=== PATIENT | female | born 1990 | race Two or more races ===

== ENCOUNTER 2025-05-12 22:35 | Emergency (ER) | payer OTHER, SELFPAY ==
--- OUTSIDE RECORDS SUMMARY | 2024-04-17 11:30 | XMS_ITS ---
Author Organization [facility] Address [address] [place], [place] [id number] Care Team Providers Care Creative Art Director Name Role Phone Chayito Barker Unavailable [phone] Chayito Lehman Unavailable [phone] REASON FOR VISIT Wellness Medications Medication SIG (Take, Route, Frequency, Duration) Notes Start Date End Date Status metFORMIN HCl 1000 MG as directed Orally Once a day Active Trulicity 1.5 MG/0.5ML Subcutaneous for 28 Days Not-Taking Social History Sex Assigned At : Social History Observation Description Sex Assigned At Female Encounters Encounter Location Date Provider Diagnosis Main [address] [place], [place] [id number] 04/17/2024 Chayito Lehman Plan Of Treatment No Information Progress Notes * Yany JOSEDOB: 0 (34 yo F)Acc No.[id number]:04/17/2024 Medical Note Patient: Yany RHOADES Provider: Oly Roman, MSN, FUEL CELL BINDER, CERTIFIED CORPORATE TRAVEL EXECUTIVE-C :1990 A ge:33 Y S ex:Female Date:04/17/2024 Address:[address] [place] [address] [id number] Subjective: * Chief Complaints: * 1 . Wellness. * Medical History: * Medications: T aking metFORMIN HCl 1000 MG Tablet as directed Orally Once a day , Not- Taking/PRN Trulicity 1.5 MG/0.5ML Solution Pen-injector Subcutaneous Objective: * Vitals: Assessment: Plan: * Treatment: * Billing Information: * Visit Code: * Procedure Codes: * Electronic signature of DARIN Alfaro on 05/12/2025 at 10:42 PM EDT Sign off status: Pending * Provider: PETR Suarez, FUEL CELL BINDERDARIN Date: 0 04/17/2024 Generated for Printing/Faxing/eTransmitting on: 0 05/12/2025 10:42 PM EDT
--- OUTSIDE RECORDS SUMMARY | 2025-05-07 04:35 | XMS_ITS | Encounter Summary ---
Author Organization [facility] Address [id number] [address] [place] [address] Care Team Providers Care Glassware Defect Repairer Name Role Phone ElisabethSara ORJAS-CONVEX GRINDER OPERATOR Primary Care Provide r Reason for Visit * Reason Comments Back Pain Pt reports to ER [facility] with complaints of chronic pain. Pt reports her back pain has worsened recently due to starting a new job. Encounter Details Date Type Department Care Team ([facility] Contact Info) Description 05/07/2025 4:35 AM EDT - 05/07/2025 5:31 AM EDT Emergency [facility] - Emergency [address] [place] [address] Delroy Hobbs MD [address] [place], [place] [id number] Lumbar back pain (Primary Dx) Discharge Disposition: Home Social History Tobacco Use Types Packs/Day Years Used Date Smoking Tobacco: Former Cigarettes Q uit: 08/2020 Smokeless Tobacco: Never Alcohol Use Standard Drinks/Week Comments Not Currently 0 (1 standard drink = 0.6 oz pur e alcohol) Social Connection and Isolat ion Panel [NHANES] Answer Date Recorded In a typical week, how many times do you talk on the phone with family, friends, or neighbors? More than three times a week 06/17/2021 How often do you get togethe r with friends or relatives? More than three times a week 06/17/2021 How often do you attend chur or hinduism services? Never 06/17/2021 Do you belong to any clubs o r organizations such as buddhism groups, unions, fraternal or athletic groups, or school groups? No 06/17/2021 How often do you attend meet ings of the clubs or organizations you belong to? Never 06/17/2021 Are you , , di vorced, , never , or living with a partner? Never 06/17/2021 AUDIT-C Answer Date Recorded Q1: How often do you have a drink containing alc ohol? Monthly or less 06/17/2021 Q2: How many drinks containi ng alcohol do you have on a typical day when you are drinking? 1 or 2 06/17/2021 Q3: How often do you have si x or more drinks on one occasion? Never 06/17/2021 Overall Financial Resource Strain (CARDIA) Answe r Date Recorded How hard is it for you to pa y for the very basics like food, housing, medical care, and heating? Not very hard 06/17/2021 PHQ-2 Answer Date Recorded Total Score 0 03/03/2022 [facility] - Occupational Stress Questionnaire Answer Date Recorded Do you feel stress - tense, restless, nervous, or anxious, or unable to sleep at night because your mind is troubled all the time - these days? Only a little 06/17/2021 Exercise Vital Sign Answer Date Recorde d On average, how many days pe r week do you engage in moderate to strenuous exercise (like a brisk walk)? 0 days 06/17/2021 On average, how many minutes do you engage in exercise at this level? 20 min 06/17/2021 PRAPARE - Transportation Answer Date Re corded In the past 12 months, has l ack of transportation kept you from medical appointments or from getting medications? No 06/05 In the past 12 months, has l ack of transportation kept you from meetings, work, or from getting things needed for daily living? No 06/17/2021 Childcare Answer Date Recorded Do problems getting child ca re make it difficult for you to work or study? Yes 06/17/2021 Employment Answer Date Recorded Do you need help finding a [facility] [employer] career center and/or a training program? No 06/17/2021 Hunger Screening Answer Date Recorded Within the past 12 months we worried whether our food would run out before we got money to buy more. Never True 05/07/2025 Within the past 12 months th e food we bought just didn't last and we didn't have money to get more. Never True 05/07/2025 Purpose - Life Answer Date Recorded I have a purpose and direction in my life. Stron gly Agree 06/17/2021 Education Answer Date Recorded What is the highest level of school you have completed or the highest degree you have received? 12th grade 06/17/2021 Comments No Sex and Gender Information Value Date Recorded Sex Assigned at Female 12/08/2019 12:25 AM EST Legal Sex Female 11:58 AM EDT Gender Identity Female 12/08/2019 12:25 AM EST Sexual Orientation Straight 12/08/2019 12 :25 AM EST documented as of this encounter Last Filed Vital Signs Vital Sign Reading Time Taken Comments Blood Pressure 105/42 05/07/2025 5:30 AM EDT Pulse 86 05/07/2025 5:30 AM EDT Temperature - - Respiratory Rate 18 05/07/2025 4:38 AM EDT Oxygen Saturation 97% 05/07/2025 5:30 AM EDT Inhaled Oxygen Concentration - - Weight 130.2 kg (287 lb) 05/07/2025 4:38 AM EDT Height 154.9 cm (5' 1 ) 05/07/2025 4:38 AM EDT Body Mass Index 54.23 05/07/2025 4:38 AM EDT documented in this encounter Discharge Instructions * Discharge Instructions* Delroy Hobbs MD - 05/07/2025 5:27 AM EDT Up with the PCP and with your pain doctor as we discussed. Home with a ride you should not drive after taking Percocet. Off work today. Thanks for choosing for [facility] and return for any concern documented in this encounter Medications at Time of Discharge alcohol swabs pads, medicatedIndicat ions:Type 2 diabetes mellitus without complication, without long-term current use of insulin ([facility]) Use as directed once dailly before insulin injections 100 each 3 03/18/2025 blood sugar diagnostic (DelaGet VERIO TEST STRIPS) stripIndications :Type 2 diabetes mellitus without complication, without long-term current use of insulin ([facility]) Use As Directed to test blood sugars 1-2 times a day 100 strip 2 04/15/2025 blood-glucose meter (scPharmaceuticalsUCH VERIO REFLECT METER) miscIndications: Type 2 diabetes mellitus without complication, without long-term current use of insulin ([facility]) Use as directed to test blood sugar 1 each 04/15/2025 blood-glucose sensor ([employer] G7 SENSOR) deviceIndication s:Type 2 diabetes mellitus without complication, without long-term current use of insulin ([facility]) Use as directed to monitor blood sugar before and after every meal. Change every 10 days. 9 each 1 04/15/2025 cyclobenzaprine (FLEXERIL) 10 mg tablet Take 1 tablet (10 mg total) by mouth 2 (two) times a day as needed for muscle spasms. 10 tablet 05/07/2025 empagliflozin (JARDIANCE) 25 mg tablet tabletIndication s:Type 2 diabetes mellitus without complication, without long-term current use of insulin ([facility]) Take 1 tablet (25 mg total) by mouth in the morning. 30 tablet 2 04/01/2025 ibuprofen (MOTRIN) 600 mg tabletIndication s:Lumbar back pain Take 1 tablet (600 mg total) by mouth every 6 (six) hours as needed for pain. 20 tablet 05/07/2025 insulin glargine 300 unit/mL (TOUMELISAO SOLOSTAR U-300 INSULIN) 300 unit/mL (1.5 mL) insulin penIndications:T ype 2 diabetes mellitus without complication, without long-term current use of insulin ([facility]) Inject 16 units Once Daily, And increase by 2 units every 2 days until AM BG levels reach 130s. Up to 45 units daily. 4.5 mL 1 03/18/2025 lancets (FrenzooTOUCH DELICA PLUS LANCET) 33 gauge miscIndications: Type 2 diabetes mellitus without complication, without long-term current use of insulin ([facility]) Use As Directed to test blood sugars 1-2 times a day 100 each 2 04/15/2025 metFORMIN XR (GLUCOPHAGE XR) 500 mg 24 hr tabletIndication s:Type 2 diabetes mellitus without complication, without long-term current use of insulin ([facility]) Take 2 tablets (1,000 mg total) by mouth in the morning and 2 tablets (1,000 mg total) before bedtime. 120 tablet 2 04/01/2025 pen needle, diabetic 32 gauge x 5/32 needleIndication s:Type 2 diabetes mellitus without complication, without long-term current use of insulin ([facility]) Use as directed once daily to deliver insulin 100 each 3 03/18/2025 tirzepatide (MOUNJARO) 5 mg/0.5 mL pen injectorIndicati ons:Type 2 diabetes mellitus without complication, without long-term current use of insulin ([facility]) Inject 5 mg under the skin every 7 days. 2 mL 2 04/01/2025 documented as of this encounter ED Notes * Delroy Hobbs MD - 05/07/2025 4:42 AM EDT Images from the original note were not included. [facility] - EMERGENCY Pt Name: Yany Jose Birthdate: 1990 Chief Complaint: Chief Complaint Patient presents with ??? Back Pain Pt reports to [facility] with complaints of chronic pain. Pt reports her back pain has worsened recently due to starting a new job. History of Present Illness: The patient presents about 4:30 a.m. complaining of severe low back pain. The patient was at work where she was active and moving and she said standing and moving in any kind of twisting seems to exacerbate a pain that she has had for many years and her back. The patient says she has had back pain for over 10 years and she has been to a chiropractor along with a chest pain coordinator though she does not believe she has ever seen a spinal surgeon. She has had x-rays in the past and she believes they showed a partial compression fracture she has had no recent x-rays but she has had no recent fall or injury either. The patient also denies any urinary symptoms at all no burning no urgency no incontinence of urine or stool. The patient denies any motor or sensory deficit and as stated denies any type of trauma Past Medical History: Past Medical History: Diagnosis Date ??? Abnormal Pap smear of cervix ??? Bartholin cyst ??? Chronic pain disorder ??? Diabetes mellitus type 2, controlled (CMS-HCC) ??? Low back pain ??? Morbid obesity (CMS-HCC) ??? Sleep apnea uses cpap Past Surgical History: Past Surgical History: Procedure Laterality Date ??? COLPOSCOPY ??? INJECTION BLOCK NERVE MEDIAL BRANCH: bilat L 4/,5 5/1 Bilateral 02/01/2024 Performed by Jaiden Robins MD at [facility] ??? INJECTION BLOCK SACROILIAC JOINT Bilateral 12/07/2023 Performed by Jaiden Robins MD at [facility] Family History: Family History Problem Relation Age of Onset ??? Diabetes Mother ??? Diabetes Father ??? Diabetes Paternal Grandmother ??? Hypertension Brother ??? Breast cancer Neg Hx Social History: Social History Socioeconomic History ??? Marital status: Single ??? Highest education level: 12th grade Tobacco Use ??? Smoking status: Former Current packs/day: 0.00 Types: Cigarettes Quit date: 08/2020 Years since quittin.7 ??? Smokeless tobacco: Never Vaping Use ??? Vaping status: Never Used Substance and Sexual Activity ??? Alcohol use: Not Currently ??? Drug use: Not Currently ??? Sexual activity: Yes Partners: Male control/protection: None Social Drivers of Health Financial Resource Strain: Low Risk (06/17/2021) Overall Financial Resource Strain (CARDIA) ??? Difficulty of Paying Living Expenses: Not very hard Food Insecurity: No Food Insecurity (03/04/2025) Hunger Screening ??? Food Insecurity - Worry: Never True ??? Food Insecurity - Inability: Never True Transportation Needs: No Transportation Needs (06/17/2021) PRAPARE - Transportation ??? Lack of Transportation (Medical): No ??? Lack of Transportation (Non-Medical): No Physical Activity: Inactive (06/17/2021) Exercise Vital Sign ??? Days of Exercise per Week: 0 days ??? Minutes of Exercise per Session: 20 min Stress: No Stress Concern Present (06/17/2021) [facility] - Occupational Stress Questionnaire ??? Feeling of Stress : Only a little Social Connections: Socially Isolated (06/17/2021) Social Connection and Isolation Panel [NHANES] ??? Frequency of Communication with Friends and Family: More than three times a week ??? Frequency of Social Gatherings with Friends and Family: More than three times a week ??? Attends Jewish Services: Never ??? Active Member of Clubs or Organizations: No ??? Attends Club or Organization Meetings: Never ??? Marital Status: Never Interpersonal Safety: Not At Risk (06/17/2021) Humiliation, Afraid, Rape, and Kick questionnaire ??? Fear of Current or Ex-Partner: No ??? Emotionally Abused: No ??? Physically Abused: No ??? Sexually Abused: No Review of Systems: Review of Systems Physical Exam: ED Triage Vitals [05/07/25 0438] Temp Heart Rate Resp BP SpO2 -- 83 18 -- 99 % Temp src Heart Rate Source Patient Position BP Location FiO2 (%) -- Pulse Ox Semi-fowlers Left arm -- Vitals: 05/07/258 Pulse: 83 Resp: 18 SpO2: 99% Height: 154.9 cm (5' 1 ) Weight: 130.2 kg (287 lb) Physical Exam Constitutional: General: She is not in acute distress. Appearance: She is obese. She is not ill-appearing. Pulmonary: Effort: Pulmonary effort is normal. Abdominal: Palpations: Abdomen is soft. Musculoskeletal: General: Tenderness present. No deformity or signs of injury. Right lower leg: No edema. Left lower leg: No edema. Comments: Some tenderness diffusely in her back but mostly with movement Skin: General: Skin is warm. Neurological: General: No focal deficit present. Mental Status: She is oriented to person, place, and time. Mental status is at baseline. Cranial Nerves: No cranial nerve deficit. Sensory: No sensory deficit. Motor: No weakness. Coordination: Coordination normal. Psychiatric: Mood and Affect: Mood normal. Procedure: Procedures Re-evaluation: Re-Evaluation Medical Decision Making Consideration is made for imaging for fracture or cauda equina or other pathologies, however the patient has had imaging in the past, her pain has been present for very long time and she has had no trauma whatsoever. She also has no new incontinence and no motor or sensory deficit so I felt x-rays were probably not necessary I discussed this with the patient and she agreed. We also considered renal colic but her pain is not typical of renal colic and she has had no urinary symptoms, I so we focus on treating her symptoms patient will be medicated re-evaluated Amount and/or Complexity of Data Reviewed External Data Reviewed: radiology. Details: I Reviewed her MRI of lumbar spine from 09/27: Probable minimal disc bulge at T12-L1. * No evidence of donald disc herniation, spinal stenosis or narrowing of the neural foramina in the lower thoracic and lumbar region. * No other acute pathology is identified. Radiology: Details: Considered and discussed x-rays but I felt it was not necessary given she has had no trauma and after reviewing some of her recent imaging including an MRI and the patient was agreeable to this Discussion of management or test interpretation with external provider(s): Treated the patient with15 of Toradol and 2 Percocet and will re-evaluate Risk OTC drugs. Prescription drug management. Drug therapy requiring intensive monitoring for toxicity. Diagnosis or treatment significantly limited by social determinants of health. ED Course: Clinical Impressions as of 05/07/25 0526 Lumbar back pain . ED Disposition None . Please note that portions of this note were completed with a voice recognition program. Efforts were made to edit the dictations but occasionally words are mis-transcribed. Delroy Hobbs MD 05/07/25 0448 documented in this encounter Plan of Treatment Upcoming Encounters Date Type Department Care Team (Late st Contact Info) Description 05/20/2025 10:00 AM EDT Office Visit [facility] Physicians Family Medicine [address] [place] [address] [place] [address] Sujata Alvarez APRN-CONVEX GRINDER OPERATOR [address] [place] [address], [place] [address] 06/19/2025 1:00 PM EDT Clinical Support [facility] - Pharmacy Medication Management [address] [place] [address] documented as of this encounter Goals Goal Patient Goal Type Associated Problems Recent Progress Patient-Stated? Author Exercise 150 minutes per week (moderate activity) Exercise No Mirna Pitts, RN Note: Evaluation of progress towards goal: New goal Fasting Blood Glucose 70-130 Result Component No Mirna Pitts RN Note: New goal documented as of this encounter Visit Diagnoses Diagnosis Lumbar back pain- Primary Lumbago documented in this encounter Administered Medications Inactive Administered Medications - up to 3 most recent administrations Medication Order MAR Action Action Date Dose Rate Site ketorolac (TORADOL) injection 15 mg 15 mg, intramuscular, Once, On Julia 05/07/25 at 0445, For 1 dose, Look-alike/sound-alike medication - verify indication for use. Duration of therapy is not to exceed 5 days. Maximum recommended dose + 120mg/24 hours. Given 05/07/2025 4:46 AM EDT 15 mg Right Quadriceps oxyCODONE-acetaminophen (PERCOCET) 5-325 mg per tablet 2 tablet 2 tablet, oral, Once, On Julia 05/07/25 at 0445, For 1 dose, Look-alike/sound-alike medication - verify indication for use. Given 05/07/2025 4:48 AM EDT 2 tablets documented in this encounter Active and Recently Administered Medications Times are shown in EDT. Scheduled Medication Order 05/05/2025 05/06/2025 05/07/2025 ketorolac (TORADOL) injection 15 mg (COMPLETED) 15 mg, intramuscular, Once, On Julia 05/07/25 at 0445, For 1 dose, Look-alike/sound-alike medication - verify indication for use. Duration of therapy is not to exceed 5 days. Maximum recommended dose + 120mg/24 hours. 0446 (Given - Provid er: Keyonna Van, KAREEM) oxyCODONE-acetaminophen (PERCOCET) 5-325 mg per tablet 2 tablet (COMPLETED) 2 tablet, oral, Once, On Julia 05/07/25 at 0445, For 1 dose, Look-alike/sound-alike medication - verify indication for use. 0448 (Given - Provid er: Keyonna Van RN) documented in this encounter Additional Health Concerns Assessment Noted Time PHQ-9 Depression Total Score: 0 03/03/20 22 10:00 AM EDT A Body Mass Index follow-up plan has been documented for the patient 03/13/2023 10:38 AM EDT documented as of this encounter Care Teams Glassware Defect Repairer Relationship Specialty Start Date End Date Sara Barber APRN-CAMI [address] [place] [address] PCP - General Family Medicine 03/04/25 documented as of this encounter
--- OUTSIDE RECORDS SUMMARY | 2025-05-12 22:42 | XMS_ITS | Encounter Summary ---
Author Organization [employer] tem Address [id number] [address] [place] [address] Care Team Providers Care Tutoring Assistant Name Role Phone Sara Barber APRN-BOILER HELPER Primary Care Provide r Encounter Details Date Type Department Care Team (Latest Contact Info) Description 05/07/2025 Travel Social History Tobacco Use Types Packs/Day Years [...] week 06/17/2021 How often do you attend [facility] or nondenominational services? Never 06/17/2021 Do you belong to any clubs o r organizations such as caodaism groups, unions, fraternal or athletic groups, or [...] Answer Date Recorded Total Score 0 03/03/2022 [facility] Answer Date Recorded [...] Recorded Do you need help finding a [facility] career center and/or a training program? No [...] AM EST documented as of this encounter Plan of Treatment Upcoming Encounters Date Type Department Care Team (Late st Contact Info) Description 05/20/2025 10:00 AM EDT Office Visit [facility] Physicians Family Medicine [address] [place] [address] Sujata Alvarez APRN-CNP [address] [place], [place] [address] 06/19/2025 1:00 PM EDT Clinical Support [facility] - Pharmacy Medication Management [address] [place] [address] documented as of this encounter Goals Goal Patient Goal Type Associated Problems Recent Progress Patient-Stated? Author Exercise 150 minutes per week (moderate activity) Exercise No Mirna Pitts, RN Note: Evaluation of progress towards goal: New goal Fasting Blood Glucose 70-130 Result Component No Mirna Pitts, RN Note: New goal documented as of this encounter Visit Diagnoses Not on filedocumented in this encounter Additional Health Concerns Assessment Noted Time PHQ-9 Depression Total Score: 0 03/03/20 22 10:00 AM EDT A Body Mass Index follow-up plan has been documented for the patient 03/13/2023 10:38 AM EDT documented as of this encounter Care Teams Tutoring Assistant Relationship Specialty Start Date End Date Sara Barber APRN-CAMI [address] [place] [address] PCP - General Family Medicine 03/04/25 documented as of this encounter
--- OUTSIDE RECORDS SUMMARY | 2025-05-12 22:42 | XMS_ITS | Encounter Summary ---
Author Organization [facility] tem Address [id number] [address] [place] [address] Care Team Providers Care Fans Clerk Name Role Phone Sara Barber Primary Care Provide r Reason for Referral * Diagnostic Imaging (Routine) - Closed Specialty Diagnoses / Procedures Referred By Contac t Referred To Contact Radiology Diagnoses Splenomegaly Lymphoma, unspecified body region, unspecified lymphoma type (CMS-HCC) Procedures CT abdomen and pelvis with contrast Sara Barber APRN-CNP [address] [place] [address] Phone: tel: fax: [facility] [address] [place] [address] Phone: tel: Referral ID Status Reason Start Date Expiration Date Visits Re quested Visits Authorized [id number] Closed 04/20/2021 04/20/2022 1 1 Encounter Details Date Type Department Care Team (Late st Contact Info) Description 04/20/2021 Orders Only [facility] [address] [place] [address] Sara Barber APRN-CNP [address], [place] [phone] Splenomegaly (Primary Dx); Lymphoma, unspecified body region, unspecified lymphoma type (CMS-HCC) Social History Tobacco Use Types Packs/Day Years Used Date Smoking Tobacco: Former Cigarettes Q uit: 08/2020 Smokeless Tobacco: Never Alcohol Use Standard Drinks/Week Comments Not Currently 0 (1 standard drink = 0.6 oz pur e alcohol) PHQ-2 Answer Date Recorded Total Score 0 03/24/2021 Childcare Answer Date Recorded Childcare Unknown 04/14/2019 Employment Answer Date Recorded Employment Unknown 04/14/2019 Purpose - Life Answer Date Recorded Purpose and direction in life Unknown Comments No Sex and Gender Information Value Date Recorded Sex Assigned at Female 12/08/2019 12:25 AM EST Legal Sex Female 11:58 AM EDT Gender Identity Female 12/08/2019 12:25 AM EST Sexual Orientation Straight 12/08/2019 12 :25 AM EST COVID-19 Exposure Response Date Recorded In the last month, have you been in contact with someone who was confirmed or suspected to have Coronavirus / COVID-19? No / Unsure 04/21/2021 1:17 PM EDT documented as of this encounter Plan of Treatment Upcoming Encounters Date Type Department Care Team (Late st Contact Info) Description 05/20/2025 10:00 AM EDT Office Visit [facility] [address] [place] [address] [place] [address] Sujata Alvarez APRN-WINCH TRUCK OPERATOR [address] [place], [place] [address] 06/19/2025 1:00 PM EDT Clinical Support [facility] [place] - Pharmacy Medication Management [address] [place] [address] documented as of this encounter Results * CT abdomen and pelvis with contrast (05/04/2021 4:32 PM EDT) Anatomical Region Laterality Modality Body, Abdomen, Body Covera N/A Compu adriano Tomography 05/05/2021 11:3 0 AM EDT Addenda Addendum by Alba London DO on 05/05/2021 11:39 AM EDT ADDENDUMPlease also add in the impression: Probable cholelithiasis Finalized by Alba London DO on 05/05/2021 11:39 AM Narrative 05/05/2021 11:[address] ABDOMEN AND PELVIS WITH CONTRAST COMPARISON: CT thorax dated 04/15/2021 HISTORY: Metastatic disease evaluation. TECHNIQUE: 150 mL of Omnipaque 300 nonionic contrast injected intravenously without reported complication. Axial images obtained from the lung bases to the pubic symphysis with sagittal and coronal 2D reformatted images. Oral contrast administered: Yes. Automatic exposure control (AEC) was utilized. CT ABDOMEN FINDINGS: There is an approximately 2.0 x 1.7 x 1.7 cm mass in the right which is stable. Smaller mass in the right cardio phrenic angle is also seen and is unchanged. Probable hepatic steatosis. There is splenomegaly which is stable. The pancreas is unremarkable. There is probable cholelithiasis. There are no adrenal masses. The kidneys showed no evidence of hydronephrosis or mass. The aorta and iliac vessels are unremarkable. There is no bowel obstruction. No free air or free fluid is seen. No adenopathy is identified. Is a small umbilical hernia containing fat CT PELVIS FINDINGS: There is no free fluid. There are no adnexal masses. The urinary bladder is intact. The perirectal fat planes are preserved. IMPRESSION: No evidence of acute process within the abdomen or pelvis. Splenomegaly unchanged Right lower lobe masses which appear stable All CT scans at this facility use dose modulation, iterative reconstruction, and/or weight based dosing when appropriate to reduce radiation dose to as low as reasonably achievable. Finalized by Alba London DO on 05/05/2021 11:36 AM Procedure Note Alba London DO - 05/05/2021 CT ABDOMEN AND PELVIS WITH CONTRAST COMPARISON: CT thorax dated 04/15/2021 HISTORY: Metastatic disease evaluation. TECHNIQUE: 150 mL of Omnipaque 300 nonionic contrast injectedintravenously without reported complication. Axial images obtained fromthe lung bases to the pubic symphysis with sagittal and coronal 2Dreformatted images. Oral contrast administered: Yes. Automatic exposurecontrol (AEC) was utilized. CT ABDOMEN FINDINGS: There is an approximately 2.0 x 1.7 x 1.7 cm mass in the right which isstable. Smaller mass in the right cardio phrenic angle is also seen andis unchanged. Probable hepatic steatosis. There is splenomegaly which is stable. The pancreas is unremarkable. There is probable cholelithiasis. There are no adrenal masses. The kidneys showed no evidence ofhydronephrosis or mass. The aorta and iliac vessels are unremarkable. There is no bowel obstruction. No free air or free fluid is seen. No adenopathy is identified. Is a small umbilical hernia containing fat CT PELVIS FINDINGS: There is no free fluid. There are no adnexal masses. The urinary bladderis intact. The perirectal fat planes are preserved. IMPRESSION: No evidence of acute process within the abdomen or pelvis. Splenomegaly unchanged Right lower lobe masses which appear stable All CT scans at this facility use dose modulation, iterativereconstruction, and/or weight based dosing when appropriate to reduceradiation dose to as low as reasonably achievable. Finalized by Alba London DO on 05/05/2021 11:36 AM Sara Barbre APRN-CAMI IMG CT ORDERABLES Adrian adriano Result - Final documented in this encounter Visit Diagnoses Diagnosis Splenomegaly- Primary Lymphoma, unspecified body region, unspecified lymphoma type (CMS-HCC) Splenomegaly Lymphoma, unspecified body region, unspecified lymphoma type (CMS-HCC) documented in this encounter Additional Health Concerns Infection Onset Date Last Indicated Resolved Time COVID-19 Positive 10/02/2023 10/02/2023 10/23/2023 11:12 PM EST Respiratory Rule-Out 01/19/2025 01/19/2025 025 4:06 AM EDT COVID-19 Positive 01/19/2025 01/19/2025 02/09/2025 11:12 PM EDT Assessment Noted Time PHQ-9 Depression Total Score: 0 03/24/20 21 10:00 AM EDT A Body Mass Index follow-up plan has been documented for the patient 03/24/2021 11:27 AM EDT documented as of this encounter Care Teams Fans Clerk Relationship Specialty Start Date End Date Sara Barber APRN-CNP [address] [place] [address] PCP - General Family Medicine 03/04/25 documented as of this encounter
--- OUTSIDE RECORDS SUMMARY | 2025-05-12 22:42 | XMS_ITS | Encounter Summary ---
Author Organization [employer] [facility] tem Address [id number] [address] [place] [address] Care Team Providers Care Power Grader Operator Name Role Phone Sara Barber APRN-CAMI Primary Care Provide r Encounter Details Date Type Department Care Team ([facility] Contact Info) Description 04/06/2021 Telephone [facility] Family Medicine [address] [place] [address] Sara Barber APRN-CNP [address] [place], [place] [phone] Social History Tobacco Use Types Packs/Day Years [...] have Coronavirus / COVID-19? No / Unsure 03/24/2021 10:38 AM EDT documented as of this encounter Miscellaneous Notes * Telephone Encounter - Janis Fung - 04/06/2021 2:57 PM EDT FYI: Patient's insurance hasn't approved her CT so they are calling the patient to move the appointment out to try to get it approved through her insurance. * Telephone Encounter - BRIANDA Chandler - 04/06/2021 2:57 PM EDT Thank you documented in this encounter Plan of Treatment Upcoming Encounters Date Type Department Care Team (Late st Contact Info) Description 05/20/2025 10:00 AM EDT Office Visit [facility] [address] [facility] [place] [address] Sujata Alvarez APRN-CNP [address] [place], [place] [address] 06/19/2025 1:00 PM EDT Clinical Support [facility] - Pharmacy Medication Management [address] [place] [address] documented as of this encounter Visit Diagnoses Not on filedocumented in this encounter Additional Health Concerns Infection [...] documented as of this encounter Care Teams Power Grader Operator Relationship Specialty Start Date End Date Sara Barber APRN-CAMI [address] [phone] PCP - General Family Medicine 03/04/25 documented as of this encounter
--- OUTSIDE RECORDS SUMMARY | 2025-05-12 22:42 | XMS_ITS | Encounter Summary ---
Author Organization [facility] [facility] tem Address [id number] [address] [place] [address] Care Team Providers Care Rodent Control Worker Name Role Phone Sara Barber APRN-CAMI Primary Care Provide r Reason for Visit * Reason Comments Med Refill Encounter Details Date Type Department Care Team ([facility] st Contact Info) Description 04/15/2025 Refill [facility] - Pharmacy Medication Management [address] [place] [address] Sara Barber APRN-CNP [address] [place], [place] [phone] Type 2 diabetes mellitus without complication, without long-term current use of insulin ([facility]) Social History Tobacco Use Types Packs/Day Years [...] 06/17/2021 How often do you attend chur ch or confucianist services? Never 06/17/2021 Do you belong to any clubs o r organizations such as restoration groups, unions, fraternal or athletic groups, or [...] Answer Date Recorded Total Score 0 03/03/2022 [facility] - Occupational Stress Questionnaire Answer Date Recorded [...] Recorded Do you need help finding a [facility] career center and/or a training program? No 06/17/2021 Hunger Screening Answer Date Recorded Within the past 12 months we worried whether our food would run out before we got money to buy more. Never True 03/04/2025 Within the past 12 months th e food we bought just didn't last and we didn't have money to get more. Never True 03/04/2025 Purpose - Life Answer Date Recorded I [...] Description 05/20/2025 10:00 AM EDT Office Visit [facility] Family [facility] [address] [place] [address] Sujata Alvarez APRN-SHOULDER BONER [address] [place] [address], [place] [address] 06/19/2025 1:00 PM EDT Clinical Support [facility] - Pharmacy Medication Management [address] [place] [address] documented as of this encounter Goals Goal Patient Goal Type Associated Problems Recent Progress Patient-Stated? Author Exercise 150 minutes per week (moderate activity) Exercise No Mirna Pitts, KAREEM Note: Evaluation of progress towards goal: New goal Fasting Blood Glucose 70-130 Result Component No Mirna Pitts, KAREEM Note: New goal documented as of this encounter Visit Diagnoses Diagnosis Type 2 diabetes mellitus without complication, without long-term current use of insulin ([facility]) documented in this encounter Additional Health Concerns Assessment Noted Time PHQ-9 Depression Total Score: 0 03/03/20 22 10:00 AM EDT A Body Mass Index follow-up plan has been documented for the patient 03/13/2023 10:38 AM EDT documented as of this encounter Care Teams Rodent Control Worker Relationship Specialty Start Date End Date Sara Barber APRN-CAMI [address] [place] [address] PCP - General Family Medicine 03/04/25 documented as of this encounter
--- OUTSIDE RECORDS SUMMARY | 2025-05-12 22:42 | XMS_ITS | Encounter Summary ---
Author Organization [employer] [facility] tem Address [id number] [address] [place] [address] Care Team Providers Care Activities Director Name Role Phone Sara Barber APRN-ENGINEERING JOB TITLES Primary Care Provide r Encounter Details Date Type Department Care Team ([facility] st Contact Info) Description 01/07/2024 Telephone [facility] [address] [place] [address] Linda Story CNA Social History Tobacco Use Types Packs/Day Years [...] often do you attend chur ch or shinto services? Never 06/17/2021 Do you belong to any clubs o r organizations such as rastafarian groups, unions, fraternal or athletic groups, or [...] Answer Date Recorded Total Score 0 03/03/2022 [facility] - Occupational Stress [...] Recorded Do you need help finding a l ocal career center and/or a training program? No 06/17/2021 Hunger Screening Answer Date Recorded Within the past 12 months we worried whether our food would run out before we got money to buy more. Never True 12/20/2023 Within the past 12 months th e food we bought just didn't last and we didn't have money to get more. Never True 12/20/2023 Purpose - Life Answer Date Recorded I [...] Description 05/20/2025 10:00 AM EDT Office Visit [facility] [address] [place] [address] Sujata Alvarez APRN-CNP [address] [place] [address], [place] [address] 06/19/2025 1:00 PM EDT Clinical Support [facility] - Pharmacy Medication Management [address] [place] [address] documented as of this encounter Goals Goal [...] Infection Onset Date Last Indicated Resolved Time Respiratory Rule-Out 01/19/2025 01/19/2025 025 4:06 AM EDT COVID-19 Positive 01/19/2025 01/19/2025 02/09/2025 11:12 PM EDT Assessment Noted Time PHQ-9 Depression Total Score: 0 03/03/20 22 10:00 AM EDT A Body Mass Index follow-up plan has been documented for the patient 03/13/2023 10:38 AM EDT documented as of this encounter Care Teams Activities Director Relationship Specialty Start Date End Date Sara Barber APRN-CNP [address] [place] [address] PCP - General Family Medicine 03/04/25 documented as of this encounter
--- OUTSIDE RECORDS SUMMARY | 2025-05-12 22:42 | XMS_ITS | Encounter Summary ---
Author Organization [facility] tem Address [id number] [address] [place] [address] Care Team Providers Care Perforator Loader Name Role Phone Sara Barber APRN-OSD CLERK Primary Care Provide r Encounter Details Date Type Department Care Team ([facility] st Contact Info) Description 04/15/2024 Telephone [facility] [address] [place] [address] Linda Story CNA Social History [...] often do you attend chur ch or anabaptism services? Never 06/17/2021 Do you belong to any clubs o r organizations such as anabaptism groups, unions, fraternal or athletic groups, or [...] Answer Date Recorded Total Score 0 03/03/2022 [facility] - [...] 10:00 AM EDT Office Visit [facility] [address] [place] [address] Sujata Alvarez APRN-CNP [address] [place] [address], [place] [address] 06/19/2025 1:00 PM EDT Clinical Support [facility] - Pharmacy Medication Management [address] [place] [address] documented as of this encounter Goals Goal [...] documented as of this encounter Care Teams Perforator Loader Relationship Specialty Start Date End Date Sara Barber APRN-CNP [address] [place] [address] PCP - General Family Medicine 03/04/25 documented as of this encounter
--- OUTSIDE RECORDS SUMMARY | 2025-05-12 22:42 | XMS_ITS | Encounter Summary ---
Author Organization [employer] [facility] tem Address [facility] [place] [place][id number] [address] [place] [address] Care Team Providers Care Vacuum Drier Tender Name Role Phone Sara Barber APRN-CAMI Primary Care Provide r Encounter Details Date Type Department Care Team ([facility] st Contact Info) Description 11/13/2023 Orders Only [facility] [address] [place] [address] Sara Barber APRN-CNP [address] [place], [place] [phone] Social History Tobacco Use Types Packs/Day Years [...] often do you attend chur ch or baptism services? Never 06/17/2021 Do you belong to any clubs o r organizations such as synagogue groups, unions, fraternal or athletic groups, or [...] Answer Date Recorded Total Score 0 03/03/2022 [facility] - [...] Recorded Do you need help finding a [facility] career center and/or a training program? No 06/17/2021 Hunger Screening Answer Date Recorded Within the past 12 months we worried whether our food would run out before we got money to buy more. Never True 11/13/2023 Within the past 12 months th e food we bought just didn't last and we didn't have money to get more. Never True 11/13/2023 Purpose - Life Answer Date Recorded I [...] Description 05/20/2025 10:00 AM EDT Office Visit [facility] [address] [place] [address] [place] [address] Sujata Alvarez APRN-ENVIRONMENTAL MAINTENANCE WORKER [address], [place] [address] 06/19/2025 1:00 PM EDT Clinical Support [facility] - Pharmacy Medication Management [address] [place] [address] documented as of this encounter Goals Goal [...] documented as of this encounter Care Teams Vacuum Drier Tender Relationship Specialty Start Date End Date Sara Barber APRN-ENVIRONMENTAL MAINTENANCE WORKER [address] [place] [address] PCP - General Family Medicine 03/04/25 documented as of this encounter
--- OUTSIDE RECORDS SUMMARY | 2025-05-12 22:42 | XMS_ITS | Patient Health Record ---
Author Organization [facility] vices Address [address] [place], [place] [address] Care Team Providers Care Charger Operator Name Role Phone Chayito Barker Unavailable [phone] QamarSindy Unavailable [phone] Allergies No Known Allergies Reason For Referral No Information Medications Medication SIG (Take, Route, Frequency, Duration) Notes Start Date End Date Status Trulicity 1.5 MG/0.5ML Subcutaneous for 28 Days Not-Taking metFORMIN HCl 1000 MG as directed Orally Once a day Active Social History Tobacco Use: Social History Observation Description Date Details (start date - stop date) Never Smoker NA - NA Sex Assigned At : Social History Observation Description Sex Assigned At Female CAGE-AID Questionnaire (2018 Edition) Question Answer Notes Have you ever felt that you ought to cut down on your drinking or drug use? No Have people annoyed you by criticizing your drin leandra or drug use? No Have you ever felt bad or guilty about your drin leandra or drug use? No Have you ever had a drink or used drugs first thing in the morning to steady your nerves or to get rid of a hangover? No CAGE-AID Score 0 Interpretation Negative PRAPARE Question Answer Notes What is your current housing situation? I have h ousing Are you worried about losing your housing? No What is the highest level of school that you have finished? 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 Check all that apply I do not have problems meeting my needs Has lack of transportation k ept you from medical appointments, meetings, work or from getting things needed for daily living? No How often do you see or talk to people that you care about and feel close to? (For example: talking to friends on the phone, visiting friends or family, going to pentecostalism or club meetings) More than 5 times a week How stressed are you? Stress is when someone feels tense, nervous, anxious, or can't sleep at night because their mind is troubled A little bit In the past year have you sp ent more than 2 nights in a row in a detention, retirement, jail center, or juvenile correctional facility? No Are you a refugee? No What country are you from? [place] Do you feel physically and e motionally safe where you currently live? Yes In the past year, have you b een afraid of your partner or ex-partner? No PRAPARE Score: 5 Tobacco Control (Standard) Question Answer Notes Tobacco use: Nonsmoker Problems Problem Type SNOMED Code ICD Code Onset Dates Problem Status W/U Status Risk Notes Problem 811121659 BMI 50.0-59.9, adult (Z68.43) Active confirmed Problem Amenorrhea (75170513) Amenorrhea (N91.2) Active confirmed Comment:Resolve d. Will refer to OB for further evaluation and treatment. Otherwise, RTO as needed., Problem Irregular periods (59938517) Irregular periods (N92.6) Active confirmed Comment:1. Irregular periods likely 2/2 anovulation 2. Declines BCM at this point to regulate cycles. Had been on cOCP before 3. Labs sent today inc quant HCG., Problem Depression screening (336942627) Screening for depression (Z13.31) Active confirmed Description:Dep ression screening Problem Patient currently (27559996) , incidental (Z33.1) Active confirmed Comment:f/u as needed,,Story:c bao today worried about her self being pregnena , w children post month nu 5. no other complain urine neg test fro preg. she has no questions and reassured., Problem Morbid obesity (734150369) Morbid obesity (E66.01) Active confirmed Comment:1. Refer to [facility] weight loss program for consultation for bariatric surgery.,Story: BMI 60 Has been unsuccessful trying to diet/exercise to lose weight., Problem Annual health maintenance examination (62510024) Physical exam, annual (Z00.00) Active confirmed Comment:observe for now. PVU,Story:priscilla lemus nolvia pt was reassured told her about preventive diets. well developed. to see obgyn. obese recomneded dieting. los salt diert more prone to htn., Vital Signs Heart Rate 73 /min 09/29/2024 Blood pressure diastolic 71 mm Hg 09/29/2024 Height-cm 154.94 cm 09/29/2024 Weight-kg 139.16 kg 09/29/2024 Height 61.0 in 09/29/2024 Blood pressure systolic 114 mm Hg 09/29/2024 Weight 306.8 lbs 09/29/2024 BMI 57.96 kg/m2 09/29/2024 Encounters Encounter Location Date Provider Diagnosis [facility] [address] [place], [place] [id number] 05/12/2024 Chayito Barker Encounter for dent al examination and cleaning with abnormal findings Z01.21 and Dental caries into dentine K02.62 [facility] [address] [place], [place] [id number] 09/29/2024 Sindy Foote Encounter for dent al examination and cleaning without abnormal findings Z01.20 Assessments Encounter Date Diagnosis (ICD Code) Assessment Notes Treatment Notes Treatment Clinical Notes Section Notes 05/12/2024 Encounter for dental examination and cleaning with abnormal findings (ICD-10 - Z01.21) 09/29/2024 Encounter for dental examination and cleaning without abnormal findings (ICD-10 - Z01.20) 05/12/2024 Dental caries into dentine (ICD-10 - K02.62) Plan Of Treatment No Information Medical (General) History Medical History History ICD Code No significant history of medical diseas es, ProblemStatus: Active, , Problems Reconciled, ProblemStatus: Acti ve, , Surgical History Surgery Date(Month/Year) No previous surgeries, ProblemStatus: Ac tive,
--- OUTSIDE RECORDS SUMMARY | 2025-05-12 22:43 | XMS_ITS | Clinical Summary ---
Author Organization [facility] Address [address] [place] [address] Care Team Providers Care Agile Business Analyst Name Role Phone Unavailable Primary Care Provider Unavailabl e Social History Tobacco Use Types Packs/Day Years Used Date Smoking Tobacco: Never Assessed Comments Unknown Sex and Gender Information Value Date Recorded Sex Assigned at Not on file Legal Sex Female 2:37 PM EDT Gender Identity Not on file Sexual Orientation Not on file Plan of Treatment Health Maintenance Due Date Last Done Comments Depression Screening 2002 Varicella Vaccines (1 of 2 - 13+ 2-dose series) 2003 Hepatitis B Vaccines (1 of 3 - 19+ 3-dose series) 2009 Pap Smear 2011 Adult Tetanus 2012 Cervical Cancer Screening 2020 HPV/Cotest 2020 Influenza Vaccine (#1) 2025 Zoster Vaccines (1 of 2) 2040 HIB Vaccines Aged Out No longer eligi ble based on patient's age to complete this topic HPV Vaccines Aged Out No longer eligi ble based on patient's age to complete this topic IPV Vaccines Aged Out No longer eligi ble based on patient's age to complete this topic Meningococcal B Vaccine Aged Out No l onger eligible based on patient's age to complete this topic Meningococcal Vaccine Aged Out No kay keenan eligible based on patient's age to complete this topic Pneumococcal Vaccine: Pediat rics (0 to 5 Years) and At-Risk Patients (6 to 64 Years) Aged Out No longer eligible b ased on patient's age to complete this topic Rotavirus Vaccines Aged Out No longer eligible based on patient's age to complete this topic
--- OUTSIDE RECORDS SUMMARY | 2025-05-12 22:43 | XMS_ITS | Encounter Summary ---
Author Organization [email or web address] tem Address [id number] [address] [place] [address] Care Team Providers Care Customer Service Representative Teacher Name Role Phone Sara Barber APRN-CAMI Primary Care Provide r Encounter Details Date Type Department Care Team ([facility] st Contact Info) Description 10/07/2021 Telephone [facility] [address] [place] [address] Sara Barber APRN-CNP [address] [place], [place] [phone] Social History Tobacco Use Types Packs/Day Years [...] often do you attend chur ch or islam services? Never 06/17/2021 Do you belong to [...] PHQ-2 Answer Date Recorded Total Score 0 10/06/2021 [facility] Occupat ional [facility] - Occupational Stress [...] center and/or a training program? No 06/17/2021 Purpose - Life Answer Date Recorded I have a purpose and direction in my life. Panda henriquez Agree 06/17/2021 Education Answer Date Recorded What [...] have Coronavirus / COVID-19? No / Unsure 10/06/2021 9:39 AM EST documented as of this encounter Plan of Treatment Upcoming Encounters Date Type Department Care Team (Late st Contact Info) Description 05/20/2025 10:00 AM EDT Office Visit [facility] [address] [place] [phone] Sujata Alvarez APRN-CNP [address] [place] [phone] 06/19/2025 1:00 PM EDT Clinical Support [facility] Medication Management [address] [place] [address] documented as of this encounter Visit Diagnoses Not on filedocumented in this encounter Additional Health Concerns Infection Onset Date Last Indicated Resolved Time COVID-19 Positive 10/02/2023 10/02/2023 10/23/2023 11:12 PM EST Respiratory Rule-Out 01/19/2025 01/19/2025 025 4:06 AM EDT COVID-19 Positive 01/19/2025 01/19/2025 02/09/2025 11:12 PM EDT Assessment Noted Time PHQ-9 Depression Total Score: 0 10/06/20 21 9:00 AM EST A Body Mass Index follow-up plan has been documented for the patient 10/06/2021 10:40 AM EST documented as of this encounter Care Teams Customer Service Representative Teacher Relationship Specialty Start Date End Date Sara Barber APRN-CNP [address] [place] [address] PCP - General Family Medicine 03/04/25 documented as of this encounter
[2025-05-12 23:23] VITALS: BP 139/88; PULSE 76; TEMP 36.6; O2SAT 100; BMI 52.1
[2025-05-13 01:40] VITALS: BP 134/78; PULSE 89; O2SAT 97
--- NOTE | 2025-05-13 02:58 | ED_ITS ---
HPI HPI - General Adult General Chief complaint: Back Pain/Injury Stated complaint: BACK PAIN Time Seen by Provider: 05/13/25 02:43 Source: patient Mode of arrival: walk-in Limitations: no limitations History of Present Illness HPI narrative: Patient is a 34-year-old female who is presenting to the ER today with chief complaint of right upper thoracic back pain this been going for 3 weeks. Patient has no rash. Patient does not recall any specific injury. Patient states that she does a lot of bending over and repetitive motion at work, and feels that her job is not allowing her to heal. Patient has no history of kidney stone. She has no bowel or bladder changes. Patient has been using IcyHot, Tylenol, but no improvement. Patient also states that after work she has been using a heating pad every night for the past several weeks. Patient has no PCP, she has an appoint with PCP on May 20 coming up. Patient has no urinary frequency urgency or burning. Patient stated she is having a harder time doing her job tonight, so she told her boss that she is coming to the ER. No previous injury. All systems are negative except as noted/marked. All systems reviewed and other clark negative. Nurses note and vital signs reviewed and patient is not hypoxic. General: The patient appears well and in no apparent distress. Patient is resting comfortably on cart. Patient is not toxic, lethargic, or listless Skin: Warm, dry, no pallor noted. There is no rash noted. No petechiae, purpura. Head: Normocephalic, atraumatic Eye: Normal conjunctiva, no drainage, EOMI. PERRL Ears, Nose, Mouth, and Throat: oral mucosa is moist. Nares patent. Mouth without vesicles. Cardiovascular: Regular Rate and Rhythm, no murmur, gallop, rub Respiratory: Patient is in no distress, no accessory muscle use, lungs are clear to auscultation, no wheezing, rales or rhonchi Back: Moderate tenderness palpation to right parathoracic soft tissue T3-T10, otherwise non-tender, no CVA tenderness bilaterally to percussion. No CT LS midline pain. No left parathoracic tenderness to palpation, no paralumbar tenderness palpation. GI: Soft, morbidly obese, no tenderness to palpation, no masses appreciated. No rebound, guarding, or rigidity noted. No distention. Musculoskeletal: Patient has full range of motion of all of the extremities, no motor, sensory, or focal neurological deficits Neurological: A&O x4, normal speech Psychiatric: Cooperative Related Data Previous Rx's ?Medication ?Instructions ?Recorded lidocaine 5 % topical patch 1 patch topical Q24H #15 e a 05/13/25 (Lidoderm) methocarbamol 500 mg tablet 500 mg PO Q8H PRN muscle p ain #10 05/13/25 tabs Allergies Allergy/AdvReac Type Severity Reaction Status Date / Time No Known Drug Allergies Allergy Verified 05/12/25 23:23 Opioid HPI Opioid Management Most Recent Opioid Data: Last Pain Scale 10 05/12/25, 23:51 PFSH PFSH Social History Little interest or pleasure in doing things: not at all Feeling down, depressed, or hopeless: not at all Exam Constitutional Vital Signs, click to edit/add: Last Vital Signs Temp 97.9 F 05/12/25 23:23 Pulse 89 05/13/25 01:40 Resp 16 05/13/25 01:40 BP 134/78 05/13/25 01:40 Pulse Ox 97 05/13/25 01:40 O2 Del Method Room Air 05/13/25 01:40 Course Vital Signs Vital signs: Vital Signs Temperature 97.9 F 05/12/25 23:23 Pulse Rate 76 05/12/25 23:23 Respiratory Rate 18 05/12/25 23:23 Blood Pressure 139/88 05/12/25 23:23 Pulse Oximetry 100 05/12/25 23:23 Oxygen Delivery Method Room Air 05/12/25 23:23 Temperature 97.9 F 05/12/25 23:23 Pulse Rate 89 05/13/25 01:40 Respiratory Rate 16 05/13/25 01:40 Blood Pressure 134/78 05/13/25 01:40 Pulse Oximetry 97 05/13/25 01:40 Oxygen Delivery Method Room Air 05/13/25 01:40 Medical Decision Making MDM Narrative Medical decision making narrative: A lot of education was done on not using heat every night after work. Also using ice, alternating Tylenol Motrin for pain, ice, stretching, and establishing PCP and possibly physical therapy. Patient was given a note stating she was in the ER today. Work restrictions for a few days were given as well. Patient has been having symptoms for 3 weeks. Patient using heat nightly. Education on treatment of muscle pain was discussed at bedside and on discharge paperwork. Patient lungs are clear bilateral. Not hypoxic. No chest pain. Discharge Plan Discharge Stand Alone Forms: Work/School Release Chief Complaint: Back Pain/Injury Clinical Impression: Chronic right-sided thoracic back pain Patient Disposition: Home, Self-Care Time of Disposition Decision: 02:54 Condition: Fair Prescriptions / Home Meds: New methocarbamol 500 mg tablet 500 mg PO Q8H PRN (Reason: muscle pain) Qty: 10 0RF lidocaine [Lidoderm] 5 % adhesive patch,medicated 1 patch topical Q24H Qty: 15 0RF Rx Instructions: leave on most painful area for up to 12 hrs Print Language: Occitan Instructions: Pain Management (ED), Thoracic Pain (ED), Back Pain (ED) Additional Instructions: Use ice 20 minutes on, 20 minutes off, for the next 1 to 2 weeks. Do not use heat, stop using heat. Alternate Tylenol and either Motrin, Advil, or ibuprofen every 4 hours to help with pain. Maximum dose of Tylenol is 3000 mg a day. Maximum dose of either Motrin, Advil, or ibuprofen is 2400 mg a day. Use muscle laxer if needed, use lidocaine patch as needed. Work restrictions given. Establish your PCP next week on May 20. You may need formal physical therapy. adult care provider may help as well. Referrals: Physician,Non-Staff, MD [Primary Care Provider] - 1 week Discharge Date/Time: 05/13/25 03:04
== END 2025-05-13 03:04 | disposition home or self-care (01) ==
PROVIDERS: Emergency Provider Emergency Medicine
DX: M54.6 Pain in thoracic spine (principal); G89.29 Other chronic pain; E66.01 Morbid (severe) obesity due to excess calories; Z68.43 Body mass index [BMI] 50.0-59.9, adult
CPT/HCPCS: 99283